=== PATIENT | male | born 1995 | race African-American/Black ===

== ENCOUNTER 2017-07-09 03:18 | Emergency (ER) | payer OTHER ==
[~2017-07-09] VITALS: Ht 172.7 cm; Wt 72.6 kg
[2017-07-09 06:00] VITALS: BP 132/68
== END 2017-07-09 06:00 | disposition home or self-care (01) ==
LOC: ER 03:18
DX: S01.01XA Laceration without foreign body of scalp, initial encounter (principal); S01.511A Laceration without foreign body of lip, initial encounter; S05.00XA Injury of conjunctiva and corneal abrasion without foreign body, unspecified eye, initial encounter; S09.90XA Unspecified injury of head, initial encounter; J45.909 Unspecified asthma, uncomplicated; Y04.8XXA Assault by other bodily force, initial encounter; Y93.89 Activity, other specified; Y92.89 Other specified places as the place of occurrence of the external cause; Y99.8 Other external cause status